=== PATIENT | male | born 1985 | race American Indian/Alaskan Native ===

== ENCOUNTER 2023-03-27 08:14 | Outpatient (CLI) | payer MEDICARE, MEDICAID ==
[2023-03-27] VITALS (13 sets, daily range): BP systolic 89–113; BP diastolic 41–65; PULSE 88–105; RESP 12–26; O2SAT 95–100
[2023-03-27] MEDS ORDERED: aminophylline 500mg/20ml vial IV PRN (09:15)
[2023-03-27] MEDS: regadenoson 0.4mg/5ml syringe IV ONE (10:14)
[2023-03-27] MEDS: aminophylline 250mg/10ml inj. IV PRN (10:32)
== END 2023-03-27 23:59 | disposition home or self-care (01) ==
LOC: RAD 08:14
PROVIDERS: ATTEND Internal Medicine Cardiovascular Disease
DX: I35.1 Nonrheumatic aortic (valve) insufficiency (principal); R79.89 Other specified abnormal findings of blood chemistry; R06.02 Shortness of breath; R94.31 Abnormal electrocardiogram [ECG] [EKG]
CPT/HCPCS: 78452; 93017; A9500; J0280; J2785